=== PATIENT | female | born 1985 | race African-American/Black ===

== ENCOUNTER 2020-01-09 12:40 | Emergency (ER) | payer OTHER ==
[~2020-01-09] VITALS: Ht 165.1 cm; Wt 93.0 kg
[~2020-01-09 12:40] MED LIST: ACETAMINOPHEN-1 EAC1 PO; AMOXICILLIN 50500 M1; BACTRIM DS TAB1 EACH PO; BIAXIN 500 MG500 M1; DOXYCYCLINE 10100 MG PO; IBUPROFEN 600600 M1 PO; LANSOPRAZOLE30 MG; LEXAPRO 10 MG T10 MG; NORCO 5-325 TA1 EACH PO; ZOFRAN ODT4 MG PO
[2020-01-09 14:00] VITALS: BP 135/84
[2020-01-09 14:02] LABS: URINE BILIRUBIN NEGATIVE (Negative); URINE BLOOD 3+ (Negative); URINE CLARITY CLEAR; URINE COLOR YELLOW; URINE GLUCOSE-RANDOM* NEGATIVE (Negative); URINE KETONES NEGATIVE (Negative); URINE LEUKOCYTES-REFLEX NEGATIVE (Negative); URINE NITRITE-REFLEX NEGATIVE (Negative); URINE PROTEIN (DIPSTICK) NEGATIVE (Negative); URINE SPECIFIC GRAVITY >= 1.030 (1.005-1.035); URINE UROBILINOGEN 0.2 E.U./dl (0.2-1.0)
[2020-01-09 14:07] LABS: SQUAMOUS 4-10 Moderate /LPF (0-3)
[2020-01-09 14:08] LABS: BACTERIA-REFLEX 1-9 Few /HPF (None Seen); CASTS None Seen /LPF (None Seen); CRYSTALS None Seen /LPF (None Seen); MUCUS 0-3 Light strn/LPF (None Seen); URINE RBC >20 Many /HPF (0-2); URINE WBC-REFLEX 0-5 Rare /HPF (0-5)
== END 2020-01-09 14:01 | disposition left against medical advice (07) ==
LOC: ER 12:40
PROVIDERS: Emergency Medicine
DX: R42 Dizziness and giddiness (principal); R53.1 Weakness; Z53.21 Procedure and treatment not carried out due to patient leaving prior to being seen by health care provider

== ENCOUNTER 2020-07-30 17:18 | Emergency (ER) | payer OTHER ==
[~2020-07-30] VITALS: Ht 165.1 cm; Wt 90.7 kg
[2020-07-30 18:35] LABS: URINE BILIRUBIN 1+ (Negative); URINE BLOOD NEGATIVE (Negative); URINE CLARITY CLEAR; URINE COLOR YELLOW; URINE GLUCOSE-RANDOM* NEGATIVE (Negative); URINE KETONES 1+ (Negative); URINE LEUKOCYTES-REFLEX NEGATIVE (Negative); URINE NITRITE-REFLEX NEGATIVE (Negative); URINE PROTEIN (DIPSTICK) TRACE (Negative); URINE SPECIFIC GRAVITY >= 1.030 (1.005-1.035)
[2020-07-30 18:36] LABS: BASOPHILS 0.3 % (0.0-2.0); EOSINOPHILS 0.2 % (0.0-3.0); HEMOGLOBIN 11.3 gm/dL (12.0-15.0); ICTOTEST (BILI CONFIRMATORY) Positive (Negative); LYMPHOCYTES 26.8 % (24.0-44.0); MCH 27.5 pg (26.0-34.0); MCHC 32.3 g/dL (28.0-37.0); MCV 85.1 fL (80.0-100.0); MONOCYTES 7.5 % (1.0-8.0); PLATELET COUNT 258 thou/uL (150-400); POLYS 65.2 % (36.0-66.0); RBC 4.11 mil/uL (4.20-5.00); RDW 14.9 % (10.5-14.5); WBC 7.7 thou/uL (4.0-11.0)
[2020-07-30 18:40] LABS: ANION GAP 11 mmol/L (7-16); BUN 16 mg/dL (7-18); CHLORIDE 104 mmol/L (98-107); CO2 27 mmol/L (21-32); CREATININE 0.8 mg/dL (0.6-1.0); GLUCOSE 84 mg/dL (74-106); POTASSIUM 3.3 mmol/L (3.5-5.1); SODIUM 142 mmol/L (136-145)
[2020-07-30 18:42] LABS: AMP/METHAMP POSITIVE (Negative); BARBITURATES Negative (Negative); BENZODIAZEPINES Negative (Negative); COCAINE POSITIVE (Negative); METHADONE Negative (Negative); OPIATES Negative (Negative); PCP Negative (Negative)
[2020-07-30 18:51] LABS: ALBUMIN 3.9 g/dL (3.4-5.0); AMYLASE 58 U/L (25-115); DIRECT BILIRUBIN < 0.1 mg/dL (<0.1-0.2); LIPASE 48 U/L (73-393); MAGNESIUM 1.8 mg/dL (1.8-2.4); PHOSPHORUS 4.2 mg/dL (2.5-4.9); SGOT 20 U/L (15-37); SGPT 32 U/L (30-65); TOTAL BILIRUBIN 0.5 mg/dL (0.2-1.0); TROPONIN-I <0.06 ng/mL (<0.06)
[2020-07-30 19:01] LABS: SALICYLATE < 2.8 mg/dL (2.8-20.0)
[2020-07-30] MEDS ORDERED: ZOFRAN ODT4 MG PO (19:47)
[2020-07-30] MEDS ORDERED: ATIVAN0.5 M1 PO (19:47)
[2020-07-30 19:56] VITALS: BP 128/62
--- NOTE | 2020-07-31 07:00 | EKG ---
[address] [address] ELECTROCARDIOGRAM REPORT Name: GIOVANI CHANDRA Room #: [facility]#: [id number] Admission: 07/30/20 Attend Phys: Discharge: 07/30/20 Date of : 83 Report #: [id number] [facility] ED Test Date: 2020-07-30 Test Time: 19:12:39 Pat Name: GIOVANI CHANDRA Department: Room: Gender: F [employer]: TETO : 1985 Requested By: Martin Turcios Order Number: [id number] MD: Ameya Pham Measurements Intervals [place] Rate: 91 P: 5 SC: 157 QRS: 30 QRSD: 87 T: 18 QT: 367 QTc: 452 Interpretive Statements Sinus rhythm No previous ECG available for comparison Electronically Signed On 07-31-2020 7:00:14 CDT by Ameya Pham [email or web address] <ELECTRONICALLY SIGNED> By: Ameya Pham MD, [facility] 07/31/20 0700 11 11 Ameya Pham MD, FACC /EPI
== END 2020-07-30 20:03 | disposition home or self-care (01) ==
LOC: ER 17:18
PROVIDERS: Emergency Medicine
DX: F10.10 Alcohol abuse, uncomplicated (principal); F15.10 Other stimulant abuse, uncomplicated; F14.10 Cocaine abuse, uncomplicated; Z88.0 Allergy status to penicillin; Z88.1 Allergy status to other antibiotic agents; Z91.040 Latex allergy status; Y90.0 Blood alcohol level of less than 20 mg/100 ml